=== PATIENT | male | born 1965 | race Two or more races ===

== ENCOUNTER 2024-04-19 04:34 | Emergency (ER) | payer MEDICAID ==
[~2024-04-19] VITALS: Ht 172.7 cm; Wt 73.0 kg
[2024-04-19] MEDS ORDERED: PSEU120T56 MT (05:06)
[2024-04-19] MEDS: ACETAMINOPHEN 325MG TABLET PO ONE (05:29)
[2024-04-19 05:39] VITALS: PULSE 75; RESP 16; O2SAT 96
[2024-04-19] MEDS: ALBUTEROL (0.083%) 2.5MG/3ML NEB HHN ONE (05:39)
[2024-04-19 06:31] VITALS: BP 120/68; PULSE 85; RESP 16; TEMP 36.94740; O2SAT 99
== END 2024-04-19 06:31 | disposition home or self-care (01) ==
LOC: ER 04:34
DX: B34.9 Viral infection, unspecified (principal); I10 Essential (primary) hypertension; R06.02 Shortness of breath; Z20.822 Contact with and (suspected) exposure to COVID-19
CPT/HCPCS: 87430; 87070; 71045; 94640; 99284; 87426; Z7610 ×3